=== PATIENT | female | born 1940 | race Two or more races ===

== ENCOUNTER 2022-07-27 09:35 | Emergency (ER) | payer OTHER ==
[~2022-07-27] VITALS: Ht 157.5 cm; Wt 63.5 kg
[~2022-07-27 09:35] MED LIST: ACETAMINOOPHEN-1 TAB; AMBIEN5 MG; ASA81 MG; CELEBREX50 MG; CLONAZEPAM0.125 MG/T; DEPRIZINE15 MG/1 ML; HYDROCODON-ACE1 EACH; IMODIUM A-D2 MG PO; LIPITOR20 MG; LISINOPRIL1 GM; LODINE300 MG; NEURONTIN300 MG; NEXIUM2.5 MG; PAXIL20 MG; TRAMADOL HCL50 MG; TYLENOL W-CODEI1 TAB PO
== END 2022-07-27 20:59 | disposition home or self-care (01) ==
LOC: ER 09:35
DX: R42 Dizziness and giddiness (principal); E86.0 Dehydration; Z86.79 Personal history of other diseases of the circulatory system; Z88.0 Allergy status to penicillin; Z91.011 Allergy to milk products; Z20.822 Contact with and (suspected) exposure to COVID-19

== ENCOUNTER 2022-11-16 14:27 | Emergency (ER) | payer OTHER ==
[~2022-11-16] VITALS: Ht 157.5 cm; Wt 63.5 kg
[2022-11-16] MEDS ORDERED: ADULT ASPIRIN81 MG PO (14:45)
[2022-11-16] MEDS ORDERED: GABAPENTIN600 MG PO (14:45)
[2022-11-16] MEDS ORDERED: MELATONIN10 MG PO (14:46)
[2022-11-16] MEDS ORDERED: VITAMIN D350 MCG PO (14:46)
[2022-11-16] MEDS ORDERED: PROTONIX40 M1 PO (14:47)
[2022-11-16] MEDS ORDERED: BUSPIRONE HCL10 MG PO (14:47)
[2022-11-16] MEDS ORDERED: SIMVASTATIN5 MG PO (14:48)
[2022-11-16] MEDS ORDERED: ARICEPT5 MG PO (14:48)
== END 2022-11-16 23:54 | disposition home or self-care (01) ==
LOC: ER 14:27
DX: K52.89 Other specified noninfective gastroenteritis and colitis (principal); E86.0 Dehydration; Z88.8 Allergy status to other drugs, medicaments and biological substances; Z91.011 Allergy to milk products

== ENCOUNTER 2023-01-01 09:56 | Emergency (ER) | payer OTHER ==
[~2023-01-01] VITALS: Ht 157.5 cm; Wt 63.5 kg
[~2023-01-01 09:56] MED LIST changes: +ADULT ASPIRIN81 MG PO; +ARICEPT5 MG PO; +BUSPIRONE HCL10 MG PO; +GABAPENTIN600 MG PO; +MELATONIN10 MG PO; +PROTONIX40 M1 PO; +SIMVASTATIN5 MG PO; +VITAMIN D350 MCG PO
== END 2023-01-01 17:12 | disposition home or self-care (01) ==
LOC: ER 09:56
DX: M25.552 Pain in left hip (principal); Z88.0 Allergy status to penicillin; Z96.642 Presence of left artificial hip joint; F03.90 Unspecified dementia, unspecified severity, without behavioral disturbance, psychotic disturbance, mood disturbance, and anxiety